=== PATIENT | female | born 1965 | race Caucasian/White ===

== ENCOUNTER 2023-04-27 09:11 | Outpatient (CLI) | payer OTHER, SELFPAY ==
--- NOTE | 2023-04-27 09:15 | CRLHL7_ITS ---
For Patients: As a result of the Century Cures Act, medical imaging exams and procedure reports are released immediately into your electronic medical record. You may view this report before your referring provider. If you have questions, please contact your health care provider. Technique: Per request, single-contrast esophagram performed with thick and thin barium. Fluoroscopy time 80 seconds. Indication: dysphagia , inflammation , recurrent hoarseness non smoker constant cough for 35+ years Comparison: None. Findings: Exam limited without the benefit of double contrast. There is no obstruction to the flow of barium. Incomplete distension of the esophagus due to small volume ingested. A small sliding hiatal hernia is noted. This measures approximately 3 cm. Mild spontaneous reflux suspected. No aspiration. Mild esophageal dysmotility. Impression: 3 cm the hiatal hernia with mild esophageal dysmotility and mild reflux. Dictated by Ricardo Baxter MD @ 04/27/2023 10:19:31 AM (Electronically Signed)
== END 2023-04-27 09:12 | disposition home or self-care (01) ==
LOC: RAD 09:12
PROVIDERS: PCP Family Medicine; Visit Provider Nurse Practitioner Family
DX: R13.10 Dysphagia, unspecified (principal); K44.9 Diaphragmatic hernia without obstruction or gangrene; K21.9 Gastro-esophageal reflux disease without esophagitis
CPT/HCPCS: 74220